=== PATIENT | female | born 1970 | race Caucasian/White ===

== ENCOUNTER 2017-08-21 02:01 | Inpatient (IN) ==
--- NOTE | 2017-08-15 11:45 | Diag Imaging Result Doc PS360 ---
EXAM: CHEST-2 VIEWS HISTORY: PAT TECHNIQUE: Two views COMPARISON: 06/05/2017 FINDINGS: The lungs are hyperexpanded. No change in the irregular nodular area in the left upper lobe. The heart is not enlarged. The vessels are small. No pleural effusions. Mild scoliosis. There are several calcified right hilar lymph nodes. IMPRESSION: Stable chest. Electronically signed by Alfie Camacho 08/15/2017 11:42 AM
--- NOTE | 2017-08-15 11:51 | EKG Report ---
Test Performed on : 08/15/2017 11:27:45 AM Test Reason : PAT Blood Pressure : / mmHG Vent. Rate : 059 BPM Atrial Rate : 059 BPM P-R Int : 124 ms QRS Dur : 070 ms QT Int : 404 ms P-R-T Axes : 074 082 077 degrees QTc Int : 399 ms Sinus bradycardia. with sinus arrhythmia. Otherwise normal ECG When compared with ECG of 15-AUG-2017 11:27, (Unconfirmed) No significant change was found Confirmed by Lucia PATEL, Carlos Bishop ([id number]) on 08/16/2017 11:55:33 AM
[2017-08-15 12:24] LABS: MANUAL DIFF NEEDED? NO
[2017-08-15 12:30] LABS: BASO% 0.2 % (0.0-0.8); EOS% 1.2 % (0.0-10.0); HEMATOCRIT 48.4 % (37.0-47.0); HEMOGLOBIN 16.7 g/dL (12.0-16.0); IMM GRAN# 0.06 X1000 (0.0-0.04); IMM GRAN% 0.4 % (0.0-0.5); LYMPH# 3.87 X1000 (1.2-3.4); LYMPH% 23.4 % (20.5-51.1); MCH 31.6 PG (27-31); MCHC 34.5 g/dL (33-37); MCV 91.5 FL (81-99); MONO# 1.52 X1000 (0.11-0.59); MONO% 9.2 % (1.7-9.3); MPV 12.1 FL (7.4-10.4); NEUT% 65.6 % (42.2-75.2); PLT 141 X1000 (130-400); RBC 5.29 XMIL (4.2-5.4)
[2017-08-15 13:07] LABS: AGAP 13; BUN 7 mg/dL (8-22); CALCIUM 9.5 mg/dL (8.8-10.2); CHLORIDE 98 mmol/L (98-107); COSMO 273; SODIUM 138 mmol/L (136-145); TCO2 27 mmol/L (25-35)
[2017-08-21] MEDS ORDERED: PEPCID ONE (06:03)
[2017-08-21] MEDS ORDERED: LR 1,000 ML ONE (06:04)
[2017-08-21] MEDS ORDERED: VALIUM ONE (06:04)
[2017-08-21] MEDS ORDERED: VANCOMYCIN 1 GM/NS 1 GM/250 ML IVPB ONE (06:04)
[2017-08-21] MEDS ORDERED: SENSORCAINE 0.25%/EPI 1:200,000 ONE (06:05)
[2017-08-21] MEDS ORDERED: LOPRESSOR ONE (06:17)
[2017-08-21] MEDS ORDERED: DIPRIVAN 1% ONE (06:29)
[2017-08-21] MEDS ORDERED: QUELICIN (DOSE) ONE (06:37)
[2017-08-21] MEDS ORDERED: SODIUM CHLORIDE 0.9% 10 ML ONE (06:37)
[2017-08-21] MEDS ORDERED: ROBINUL ONE ×2 (06:37→08:50)
[2017-08-21] MEDS ORDERED: NORCURON ONE (06:37)
[2017-08-21] MEDS ORDERED: XYLOCAINE-MPF 2% ONE (06:37)
[2017-08-21] MEDS ORDERED: VERSED ONE (06:43)
[2017-08-21] MEDS ORDERED: LUBRIFRESH PM OPH OINTMENT ONE (06:51)
[2017-08-21] MEDS ORDERED: FENTANYL ONE (06:52)
[2017-08-21] MEDS ORDERED: EXPAREL 1.3% ONE (06:58)
[2017-08-21] MEDS ORDERED: DECADRON ONE (07:54)
[2017-08-21 07:56] LABS: URINE MICRO REVIEW NEEDED? NO; URINE SOURCE CATH
[2017-08-21 07:59] LABS: BILIRUBIN URINE NEGATIVE (NEGATIVE); BLOOD URINE NEGATIVE (NEGATIVE); COLOR YELLOW; GLUCOSE URINE NEGATIVE (NEGATIVE); LEUKOCYTES URINE NEGATIVE (NEGATIVE); NITRITE URINE NEGATIVE (NEGATIVE); PH URINE 5.5; PROTEIN URINE TRACE mg/dL (NEGATIVE); SP GRAVITY URINE 1.028; TURBIDITY URINE CLEAR (CLEAR); UROBILINOGEN URINE 3 mg/dL (NORMAL)
[2017-08-21 08:00] LABS: UR EPITHELIAL CELLS <10 /HPF (<10); URINE BACTERIA NEGATIVE /HPF; URINE RBC <10 /HPF (<10); URINE WBC <10 /HPF (<10)
[2017-08-21] MEDS ORDERED: OFIRMEV 1000 MG/ISOTONIC SOLN 1,000 MG/100 ML BOTTLE ONE (08:17)
[2017-08-21] MEDS ORDERED: NEOSTIGMINE ONE (08:50)
[2017-08-21] MEDS ORDERED: ZOFRAN ONE (08:51)
[2017-08-21] MEDS ORDERED: EPHEDRINE ONE (08:59)
--- NOTE | 2017-08-21 10:03 | Diag Imaging Result Doc PS360 ---
EXAM: CHEST-PORTABLE HISTORY: post thoracotomy TECHNIQUE: AP portable at 0950 COMMENT: There are two chest tubes in the left hemithorax. There is been left upper lobectomy since the previous study of 08/15/2017. Small amount of soft tissue emphysema is seen laterally on the left. No abnormal fluid collections are present. The heart and pulmonary vascularity are within normal limits. IMPRESSION: Postsurgical changes on the left as described. Electronically signed by Enrrique Ewing 08/21/2017 10:01 AM
[2017-08-21] MEDS: MORPHINE ONE ×4 (10:26→14:40)
[2017-08-21 10:34] LABS: ALLEN TEST YES; BLOOD TYPE ARTERIAL; DRAW SITE R RADIAL; METHB 1.1 % (0.0-1.5); O2(CT) 19.1 mL/dL (15.0-23.0); PCO2(98.6) 46 mmHg (35-45); PO2(98.6) 100 mmHg (60-100); SAMPLE BLOOD; SAO2 98.3 % (95.0-100.0); THB 14.3 g/dL (11.5-17.4); pH(98.6) 7.33 (7.35-7.45)
[2017-08-21 10:36] LABS: MODALITY CANNULA
[2017-08-21] MEDS ORDERED: LR 500 ML ONE (11:04)
[2017-08-21] MEDS ORDERED: NS 1,000 ML ONE (11:04)
[2017-08-21] MEDS ORDERED: ZOFRAN IV PRN (12:31)
[2017-08-21] MEDS: NS 1,000 ML IV SCH ×2 (14:38→23:10)
[2017-08-21] MEDS: DILAUDID IV PRN ×3 (15:26→23:10)
[2017-08-21] MEDS: OFIRMEV 1000 MG/ISOTONIC SOLN 1,000 MG/100 ML BOTTLE IV SCH ×2 (17:16→23:09)
[2017-08-21] MEDS: VANCOMYCIN 1 GM/NS 1 GM/250 ML IVPB IV SCH (17:16)
[2017-08-21] MEDS: VENTOLIN HFA INH SCH (19:56)
[2017-08-21] MEDS: ZANAFLEX PO SCH (20:55)
[2017-08-21] MEDS: ULTRAM PO SCH (20:56)
[2017-08-21] MEDS: PERIDEX MT SCH (20:56)
[2017-08-22 04:55] LABS: ALLEN TEST YES; BE -2.3 mmoll (-3.0-3.0); BLOOD TYPE ARTERIAL; DRAW SITE R RADIAL; METHB 0.8 % (0.0-1.5); O2(CT) 22.1 mL/dL (15.0-23.0); PCO2(98.6) 44 mmHg (35-45); PO2(98.6) 59 mmHg (60-100); SAMPLE BLOOD; SAO2 92.7 % (95.0-100.0); THB 17.5 g/dL (11.5-17.4); pH(98.6) 7.34 (7.35-7.45)
[2017-08-22 04:56] LABS: MODALITY CANNULA
[2017-08-22] MEDS: OFIRMEV 1000 MG/ISOTONIC SOLN 1,000 MG/100 ML BOTTLE IV SCH ×3 (05:19→17:55)
[2017-08-22] MEDS: LOVENOX SUBQ SCH (05:19)
[2017-08-22] MEDS: DILAUDID IV PRN ×4 (05:20→20:16)
[2017-08-22 06:26] LABS: MANUAL DIFF NEEDED? NO
[2017-08-22] MEDS: VANCOMYCIN 1 GM/NS 1 GM/250 ML IVPB IV SCH ×2 (06:32→18:15)
[2017-08-22] MEDS: PRILOSEC PO SCH (06:32)
[2017-08-22 06:40] LABS: BASO% 0.1 % (0.0-0.8); EOS# 0.07 X1000 (0.0-0.7); EOS% 0.5 % (0.0-10.0); HEMATOCRIT 36.9 % (37.0-47.0); HEMOGLOBIN 12.1 g/dL (12.0-16.0); IMM GRAN# 0.05 X1000 (0.0-0.04); IMM GRAN% 0.3 % (0.0-0.5); LYMPH# 3.11 X1000 (1.2-3.4); LYMPH% 20.2 % (20.5-51.1); MCHC 32.8 g/dL (33-37); MCV 94.6 FL (81-99); MONO# 1.08 X1000 (0.11-0.59); MPV 12.1 FL (7.4-10.4); NEUT% 71.9 % (42.2-75.2); PLT 105 X1000 (130-400)
[2017-08-22 07:03] LABS: AGAP 11; BUN 6 mg/dL (8-22); CALCIUM 7.9 mg/dL (8.8-10.2); CHLORIDE 104 mmol/L (98-107); COSMO 268; POTASSIUM 4.2 mmol/L (3.5-5.1); SODIUM 135 mmol/L (136-145); TCO2 20 mmol/L (25-35)
[2017-08-22] MEDS ORDERED: LASIX IV ONE (07:16)
--- NOTE | 2017-08-22 07:20 | Diag Imaging Result Doc PS360 ---
EXAM: CHEST-PORTABLE INDICATION: post thoracotomy TECHNIQUE: One view COMPARISON: 08/21/2017 FINDINGS: Dual left chest tubes are stable. Trace soft tissue emphysema overlying the left chest wall is again noted. No discrete pneumothorax can be identified. No new consolidations are identified. Cardiac silhouette is stable. IMPRESSION: Stable chest. Electronically signed by Rob Odell 08/22/2017 7:18 AM
[2017-08-22] MEDS: VENTOLIN HFA INH SCH ×2 (08:14→19:18)
[2017-08-22] MEDS: LOPRESSOR PO SCH (08:19)
[2017-08-22] MEDS: ULTRAM PO SCH ×2 (08:19→20:16)
[2017-08-22] MEDS: PERIDEX MT SCH ×2 (08:20→20:16)
[2017-08-22] MEDS: NOLVADEX PO SCH (08:24)
[2017-08-22] MEDS: ZANAFLEX PO SCH (20:16)
[2017-08-23] MEDS: OFIRMEV 1000 MG/ISOTONIC SOLN 1,000 MG/100 ML BOTTLE IV SCH ×4 (01:19→20:14)
[2017-08-23] MEDS: DILAUDID IV PRN ×3 (01:19→13:15)
[2017-08-23 05:11] LABS: MANUAL DIFF NEEDED? NO
[2017-08-23 05:30] LABS: BASO% 0.1 % (0.0-0.8); EOS# 0.05 X1000 (0.0-0.7); EOS% 0.3 % (0.0-10.0); HEMATOCRIT 37.6 % (37.0-47.0); HEMOGLOBIN 12.6 g/dL (12.0-16.0); IMM GRAN# 0.04 X1000 (0.0-0.04); IMM GRAN% 0.3 % (0.0-0.5); LYMPH# 2.29 X1000 (1.2-3.4); LYMPH% 15.3 % (20.5-51.1); MCH 31.2 PG (27-31); MCHC 33.5 g/dL (33-37); MCV 93.1 FL (81-99); MONO# 0.94 X1000 (0.11-0.59); MONO% 6.3 % (1.7-9.3); MPV 12.2 FL (7.4-10.4); NEUT% 77.7 % (42.2-75.2); PLT 106 X1000 (130-400); RBC 4.04 XMIL (4.2-5.4)
[2017-08-23 05:36] LABS: AGAP 9; BUN 8 mg/dL (8-22); CALCIUM 7.8 mg/dL (8.8-10.2); CHLORIDE 99 mmol/L (98-107); COSMO 266; POTASSIUM 3.8 mmol/L (3.5-5.1); SODIUM 133 mmol/L (136-145); TCO2 25 mmol/L (25-35)
[2017-08-23] MEDS: PRILOSEC PO SCH (06:04)
[2017-08-23] MEDS: LOVENOX SUBQ SCH (06:04)
[2017-08-23] MEDS: VANCOMYCIN 1 GM/NS 1 GM/250 ML IVPB IV SCH (06:55)
--- NOTE | 2017-08-23 07:11 | Diag Imaging Result Doc PS360 ---
EXAM: CHEST-PORTABLE HISTORY: post thoracotomy TECHNIQUE: Erect AP portable at 0525 COMMENT: The chest tubes are still present on the left. No pneumothorax is demonstrated. There is slightly increased pulmonary edema in the right lung. This was not present on 08/21/2017 but was present on 08/22/2017. There is a small right pleural effusion. IMPRESSION: Slightly worsened right pulmonary edema. Right pleural effusion. Electronically signed by Enrrique Ewing 08/23/2017 7:08 AM
[2017-08-23] MEDS: VENTOLIN HFA INH SCH ×2 (07:51→19:15)
[2017-08-23] MEDS: PERIDEX MT SCH ×2 (09:18→20:14)
[2017-08-23] MEDS: ULTRAM PO SCH ×2 (09:19→20:13)
[2017-08-23] MEDS: LOPRESSOR PO SCH (09:19)
[2017-08-23] MEDS: NOLVADEX PO SCH (09:20)
[2017-08-23] MEDS: ZANAFLEX PO SCH (20:13)
[2017-08-24] MEDS: OFIRMEV 1000 MG/ISOTONIC SOLN 1,000 MG/100 ML BOTTLE IV SCH ×4 (04:20→20:48)
[2017-08-24 05:21] LABS: MANUAL DIFF NEEDED? NO
[2017-08-24 05:34] LABS: BASO% 0.2 % (0.0-0.8); EOS# 0.08 X1000 (0.0-0.7); EOS% 0.6 % (0.0-10.0); HEMATOCRIT 34.6 % (37.0-47.0); HEMOGLOBIN 11.5 g/dL (12.0-16.0); IMM GRAN# 0.04 X1000 (0.0-0.04); IMM GRAN% 0.3 % (0.0-0.5); LYMPH# 1.84 X1000 (1.2-3.4); LYMPH% 13.8 % (20.5-51.1); MCH 30.6 PG (27-31); MCHC 33.2 g/dL (33-37); MONO# 0.81 X1000 (0.11-0.59); MONO% 6.1 % (1.7-9.3); MPV 11.6 FL (7.4-10.4); PLT 107 X1000 (130-400); RBC 3.76 XMIL (4.2-5.4)
[2017-08-24] MEDS: PRILOSEC PO SCH (06:12)
[2017-08-24] MEDS: LOVENOX SUBQ SCH (06:12)
--- NOTE | 2017-08-24 06:50 | Diag Imaging Result Doc PS360 ---
EXAM: CHEST-PORTABLE HISTORY: post thoracotomy TECHNIQUE: Portable AP COMPARISON: 08/23/2017 FINDINGS: One of the left-sided chest tubes has been removed. The other chest tube is unchanged. Questionable tiny left pneumothorax. There are lateral left skin basil. Infiltrates remain in the right lung. The heart is not enlarged. IMPRESSION: Interval removal of one of the left-sided chest tubes, otherwise stable chest. Electronically signed by Alfie Camacho 08/24/2017 6:47 AM
[2017-08-24] MEDS: VENTOLIN HFA INH SCH ×2 (08:12→20:00)
[2017-08-24] MEDS ORDERED: LASIX PO ONE (08:37)
[2017-08-24] MEDS: NOLVADEX PO SCH (10:39)
[2017-08-24] MEDS: PERIDEX MT SCH ×2 (10:40→20:49)
[2017-08-24] MEDS: LOPRESSOR PO SCH (10:40)
[2017-08-24] MEDS: ULTRAM PO SCH ×2 (10:41→20:49)
[2017-08-24] MEDS: ZANAFLEX PO SCH (20:49)
[2017-08-25] MEDS: OFIRMEV 1000 MG/ISOTONIC SOLN 1,000 MG/100 ML BOTTLE IV SCH ×2 (03:57→09:02)
[2017-08-25] MEDS: PRILOSEC PO SCH (07:04)
[2017-08-25] MEDS: LOVENOX SUBQ SCH (07:04)
[2017-08-25 07:30] VITALS: BP 133/82
--- NOTE | 2017-08-25 07:51 | Diag Imaging Result Doc PS360 ---
EXAM: CHEST-2 VIEWS HISTORY: post thoracotomy TECHNIQUE: Chest two views COMPARISON: 08/24/2017 FINDINGS: Interval removal of the left-sided chest tube. Left lateral skin basil remain. No definite pneumothorax. Heart is not enlarged. Near complete clearing of the right sided infiltrates. There are tiny pleural effusions. IMPRESSION: Interval improvement. Electronically signed by Alfie Camacho 08/25/2017 7:48 AM
[2017-08-25] MEDS: VENTOLIN HFA INH SCH (08:23)
[2017-08-25] MEDS: ULTRAM PO SCH (09:01)
[2017-08-25] MEDS: PERIDEX MT SCH (09:01)
[2017-08-25] MEDS: NOLVADEX PO SCH (09:01)
[2017-08-25] MEDS: LOPRESSOR PO SCH (09:01)
[2017-08-25] MEDS ORDERED: NORCO-10 PO PRN (10:13)
== END 2017-08-25 11:43 | disposition home or self-care (01) ==
LOC: SURHOLD 02:01 → ICU 12:06 → 4N 08-23 11:16
PROVIDERS: ADMIT Surgery; ATTEND Surgery